=== PATIENT | male | born 1970 | race Caucasian/White ===

== ENCOUNTER 2020-05-12 10:11 | Emergency (ER) | payer BC ==
[~2020-05-12] VITALS: Ht 193 cm; Wt 124.7 kg
[2020-05-12 10:17] VITALS: BP_SYST 143
[2020-05-12] MEDS ORDERED: NACL 0.9% 1,000 ML IV SCH (10:30)
[2020-05-12] MEDS ORDERED: KETOROLAC TROMETHAMINE 30 MG VIAL IVP ONE (10:30)
[2020-05-12] MEDS ORDERED: VANCOMYCIN HCL 1 MG in D5W 250 ML IV ONE (10:30)
[2020-05-12] MEDS ORDERED: VANCOMYCIN HCL 1000 MG/VIAL IV ONE (10:43)
[2020-05-12 10:50] LABS: BASOPHILS # (AUTO) 0.1 K/uL (0.0-0.2); BASOPHILS % (AUTO) 1.1 % (0.0-2.0); EOSINOPHILS # (AUTO) 0.2 K/uL (0.0-0.4); EOSINOPHILS % (AUTO) 2.4 % (0.0-4.0); HEMATOCRIT 43.3 % (36-54); HEMOGLOBIN 14.2 g/dL (14.0-18.0); LYMPHOCYTES # (AUTO) 0.9 K/uL (1.0-5.5); LYMPHOCYTES % (AUTO) 10.7 % (20.5-51.5); MEAN CORPUSCULAR HEMOGLOBIN 27 pg (27-31); MEAN CORPUSCULAR HGB CONC 33 % (32-36); MEAN CORPUSCULAR VOLUME 82 fL (79.0-98.0); MONOCYTES # (AUTO) 0.4 K/uL (0.0-1.0); MONOCYTES % (AUTO) 5.3 % (1.7-9.3); NEUTROPHILS # (AUTO) 6.9 K/uL (1.8-7.7); NEUTROPHILS % (AUTO) 80.5 % (40.0-70.0); PLATELET COUNT (AUTO) 243 K/uL (130-430); RED BLOOD CELL COUNT(AUTO) 5.25 MIL/uL (4.2-6.2); RED CELL DISTRIBUTION WIDTH 14.7 % (9.0-15.0); WHITE BLOOD COUNT (AUTO) 8.5 K/uL (4.8-10.8)
[2020-05-12 10:59] LABS: CREATININE 1.09 mg/dL (0.55-1.30); POTASSIUM 3.7 mmol/L (3.5-5.1)
[2020-05-12 11:04] LABS: ALBUMIN 3.7 g/dL (3.4-4.8); TOTAL BILIRUBIN 0.8 mg/dL (0.0-1.0)
[2020-05-12] MEDS ORDERED: VANCOMYCIN HCL 2,000 MG in NS 500 ML IV ONE (11:30)
[2020-05-12] MEDS ORDERED: VANCOMYCIN HCL IV ONE (11:30)
[2020-05-12] MEDS ORDERED: NS IV ONE (11:30)
[2020-05-12] MEDS ORDERED: HYDR-4497 PO (12:17)
[2020-05-12] MEDS ORDERED: IBUP-1969 PO (12:22)
[2020-05-12 14:13] VITALS: BP_SYST 105
== END 2020-05-12 14:13 | disposition home or self-care (01) ==
LOC: SED 10:11
DX: L03.116 Cellulitis of left lower limb (principal); Z88.0 Allergy status to penicillin
CPT/HCPCS: 36415; 80053; 85025; 96374; 96375; 99284; J1885; J3370; J7040